=== PATIENT | female | born 2000 | race Two or more races ===

== ENCOUNTER 2024-08-06 14:22 | Emergency (ER) | payer OTHER, MEDICAID, SELFPAY ==
[2024-08-06 14:22] VITALS: BMI 34.2
[2024-08-06] MEDS: predniSONE 20 MG TABLET 60 MG PO (15:07)
[2024-08-06] MEDS: DiphenhydrAMINE 25 MG CAPSULE PO (15:08)
[2024-08-06 15:27] VITALS: BP 113/75; PULSE 72; RESP 16; TEMP 36.9; O2SAT 99
--- NOTE | 2024-08-06 15:30 | EDNOTE_ITS ---
ED Allergic Reaction RME/HPI General Chief complaint: Allergic Reaction Stated complaint: HIVES ALLERGIC REACTION Time Seen by Provider: 08/06/24 14:51 Source: patient Arrival date/time: 08/06/24 14:22 23-year-old female presents to the emergency department with complaints of rash and hives that began approximately 1 hour ago. Denies any shortness of breath no chest pain palpitations or wheezing. Patient reports that 1 week ago she had similar symptoms was seen by her PCP and given 1 shot of steroids diminishing her symptoms. She is unaware of what she can possibly be allergic to. Mode of arrival: ambulatory Related Data Previous Rx's ?Medication ?Instructions ?Recorded diphenhydramine HCl 25 mg capsule 25 mg PO TID PRN allergy symptoms 08/06/24 (Allergy (diphenhydramine)) #20 caps prednisone 20 mg tablet 40 mg (2 x 20 mg) PO QDAY 3 days 08/06/24 #6 tabs Allergies Allergy/AdvReac Type Severity Reaction Status Date / Time Penicillins Allergy Severe STOP Verified 11/06/22 20:25 BREATHING amoxicillin Allergy Verified 11/06/22 20:25 naproxen Allergy Verified 11/06/22 20:25 Review of Systems Review of Systems Systems Reviewed: All systems reviewed, normal except as documented Narrative Review of Systems: Gen: No fever, no chills, no weight loss EYES: No discharge, no visual changes, no pain HEENT: No ear pain, no congestion, no sore throat PULM: No shortness of breath, no cough, no congestion CV: No chest pain, no dyspnea on exertion, no palpitations GI: No nausea, no vomiting, no diarrhea, no pain, no constipation : No frequency, no urgency,? no dysuria Musc/skel: No joint pain, no back pain Skin: +rash? Past Medical History Past Medical History NEUROLOGIC: Negative Neurological Disorders or Seizures CARDIAC: Negative Cardiac Disorders or Congestive Heart Failure RESPIRATORY: Negative Chronic Obstructive Pulmonary Disease (COPD) GASTROINTESTINAL: Negative Gastrointestinal Disorders GENITOURINARY: Negative Genitourinary Disorders or Renal Disease MUSCULOSKELETAL: Negative Musculoskeletal Disorders ENDOCRINE: Negative Endocrine Disorders, Diabetes Mellitus Type 1 or Diabetes Mellitus Type 2 HEMATOLOGIC: Negative Blood Disorders OTHER HISTORY: Negative Blood Transfusions, Blood Transfusion Reaction, Anesthesia Reactions or MRSA Family History FAMILY HISTORY: Positive Family Cancer (grandmother) Social History SMOKING STATUS: Never smoker SUBSTANCE USE: does not use ED Exam Narrative Physical exam: General: Sittiing in Exam table in no acute distress, answering questions appropriately HENT: normocephalic, atraumatic, EOMI, PERRLA, moist mucous membranes Chest: chest wall is nontender Cardiac: regular rate and rhythm, normal S1 and S2, no murmurs, rubs, or gallops, capillary refill ?2 seconds Pulmonary: clear to auscultation bilaterally, no wheezing, crackles, or rhonchi Abdominal: active bowel sounds, soft, nontender, nondistended Neuro: A&OX3, CN II-XII intact, sensation grossly intact bilaterally in UE and LE. Skin: + Mild rash to upper and posterior back with hives. Ext: no lower extremity edema Course Quality Measures none Orders Category Date Time Status DiphenhydrAMINE [Benadryl] Med 08/06/24 14:58 Discontinued 25 mg PO X1 ONE predniSONE Med 08/06/24 14:58 Discontinued 60 mg PO X1 ONE Vital Signs Vital signs: Vital Signs Temperature 98.4 F 08/06/24 15:27 Pulse Rate 72 08/06/24 15:27 Respiratory Rate 16 08/06/24 15:27 Blood Pressure 113/75 08/06/24 15:27 Pulse Oximetry (%) 99 08/06/24 15:27 Oxygen Delivery Method Room Air 08/06/24 15:27 Allergic Reaction MDM Narrative MDM Narrative:: 23-year-old female evaluated the emergency department with evidence of + Cutaneous hives/erythema No evidence of multiorgan involvement Given history and exam, presentation most consistent with allergic reaction. I have low suspicion for toxic shock syndrome, anaphylaxis, asthma exacerbation, or drug toxicity. P.o. medications of prednisone and Benadryl given in ED patient, was observed and symptoms had improved. No hypoxia or airway involvement. Rx: Prednisone 40mg qday x3days, Benadryl 25mg q8hr x3days Discharge home follow-up with PCP in 48 hours. ER precautions given Patient data External records reviewed:: [facility] previous records Clinical information provided by:: patient Social determinants that could affect healthcare access:: none Patient has the following chronic illnesses:: no How is presenting disease/condition affected by chronic disease/condition?: no chronic disease Evaluation data The following diagnostics were reviewed and interpreted by me:: other (specify) Lab and/or radiology exams considered but not ordered:: no Interpretation Summary: n/a Medications / Prescriptions Medications or Prescriptions considered but not ordered:: no Medication administrations:: Medication Administration History Discontinued Medications Diphenhydramine HCl (Diphenhydramine 25 Mg Capsule) 25 mg PO X1 ONE Stop: 08/06/24 14:59 Last Admin: 08/06/24 15:08 Dose: 25 mg Documented By: Prednisone (Prednisone 20 Mg Tablet) 60 mg PO X1 ONE Stop: 08/06/24 14:59 Last Admin: 08/06/24 15:07 Dose: 60 mg Documented By: All medications administered and effective Consultations Consultation(s) initiated? (list below): No Diagnosis Differential Diagnosis allergic reaction: anaphylaxis, allergic reaction, contact dermatitis, adverse reaction to drug and urticaria Most likely diagnosis given after review of the tests above:: Allergic reaction Admission Indicated Admission indicated?: not indicated Admission Request Was there a request for admission?: No Disposition Plan Disposition Plan: Discharge Discharge Attestation Discharge Attestation: The patient and all family members were given an opportunity to ask questions and understood the discharge instructions. Discharge instructions specifically effects, indications for sooner follow up or return to the emergency department, and the expected course of current diagnosis. Patient condition: Stable Discharge Plan Plan Patient Disposition: HOME (Self Care) Patient condition on transfer: Stable Prescriptions/Referrals Prescriptions/Med Rec: New diphenhydramine HCl [Allergy (diphenhydramine)] 25 mg capsule 25 mg PO TID PRN (Reason: allergy symptoms) Qty: 20 0RF prednisone 20 mg tablet 40 mg PO QDAY 3 Days Qty: 6 0RF Problem List Clinical Impression: Allergic reaction Patient/Caregiver Discharge Instructions Discharge Activity: activity as tolerated Education Materials: ED Medicine Reaction: Allergic Additional Instructions: You have been evaluated today in the Emergency Department today for your allergic reaction. You have been given medications including steroids, and benadryl to control your hives. You have been observed in the Emergency Department and it appears that your symptoms will not return.? Please follow up with your primary care physician as needed. Return to the Emergency Department if you experience difficulty breathing or swallowing, recurrent vomiting, rashes, lip/mouth/tongue swelling, persistent fevers or for any other concerning symptoms.? Print Language: Rwandan Stand Alone Forms: [employer] Award Info., Patient Portal Info Letter Attestation MD Attestation The patient was seen by the midlevel practitioner. I, the co-signing physician, was present during the entire ER visit. While I did not physically examine the patient, I was available for consultation as needed.
== END 2024-08-06 16:25 | disposition home or self-care (01) ==
LOC: SERX 16:12
PROVIDERS: Emergency Provider Emergency Medicine; PCP Nurse Practitioner Family
DX: L50.0 Allergic urticaria (principal)
CPT/HCPCS: 99282; J7512; A9270

== ENCOUNTER 2024-10-20 21:51 | Emergency (ER) | payer MEDICAID, SELFPAY ==
[2024-10-20 21:52] VITALS: BMI 36.1
[2024-10-20 22:44] VITALS: BP 129/84; PULSE 84; RESP 18; TEMP 37.1; O2SAT 99
--- NOTE | 2024-10-20 22:49 | XR_ITS ---
Examination: CT brain head without contrast. 2-D sagittal coronal reconstructions Date and time of exam:October 21, 2024 0041 hrs. Indications: Severe headaches with right eye blurred vision today CTDI: vol (mGy):48.9 DLP: (mGycm):998 Technique: Multiple CT axial sections of the brain have been obtained, 5 mm slice thickness. Contrast has not been administered. 2-D sagittal, coronal reconstructions have been obtained Low dose protocols were performed. One or more of the following dose reduction techniques were used; automated exposure control, adjustment of the mA and/or KV according to patient size, use of iterative reconstruction technique. Findings: No significant ventricular enlargement. Intra-axial or extra-axial hemorrhage density is not seen. No mass effect or midline shift Basal cisterns are not remarkable. Fourth ventricle is midline. Cranial vault intact. Impression: Negative for acute hemorrhage, mass effect or midline shift If symptoms persist, consider brain MRI follow-up
--- NOTE | 2024-10-20 22:51 | EDNOTE_ITS ---
ED Headache RME/HPI General Chief Complaint: Headache Stated Complaint: R SIDED HEADACHE, R EYE VISION CHANGES Time Seen by Provider: 10/20/24 22:04 Arrival date/time: 10/20/24 21:51 RME / HPI RME / HPI Narrative: This section includes all my notes and documentations, including HPI, PE, and ED course.? Indio Oden MD HPI: 23 year old female here with a few days of right sided headaches. She reports intermittent sharp and stabbing pain in the right temporal area lasting 30 seconds or so. No fever. Has associated nausea. No other complaints. ROS: All negative except as documented in HPI. Physical Exam: General:? Alert and oriented. Appears uncomfortable. Eyes:? Conjunctivae and lids clear.? PERRL. EOMI. ENT:? No nasal congestion. Pharynx normal. TM normal bilaterally. Neck:? Supple.? Heart:? RRR.? Lungs:? No respiratory distress.? Good air movement.? No rhonchi, wheezing, rales.?? Abdomen:? Soft and nontender.?? Legs:? No clubbing, cyanosis, edema.? Skin:? Warm and dry.?? Neuro:? Alert and oriented X 3.??CN 2-12 grossly normal. No peripheral motor deficits. I reviewed all diagnostic test results. My review of the head CT report is?no acute findings. Urine negative. UA unremarkable. At this point, diagnoses include?Trigeminal Neuralgia. Treatment here included?Zofran ODT 4 mg and Xanax 0.5 mg. Significant improvement noted. Recommended more outpatient care. Based on my best medical judgment, made decision no further evaluation or treatment indicated at this time.? Patient understands and agrees to the discharge instructions customized and printed, see below. Discharge Instructions from Dr. Oden printed for you: 1. Fortunately, there is no life-threatening condition, such as stroke or brain tumor. 2. But you have trigeminal neuralgia, which causes severe shooting pain lasting seconds. 3. Try Xanax and lidocaine patches as needed. 4. See a private doctor on 10/23/2024 for recheck and further care. Ask for help with more care, such as MRI imaging and referral to see neurologist. 5. Seek immediate medical care with worsening or with any concerns. Indio Oden MD Discharge Instructions from Dr. Oden printed for you: 1. Fortunately, there is no life-threatening condition, such as stroke or brain tumor. 2. But you have trigeminal neuralgia, which causes severe shooting pain lasting seconds. 3. Try Xanax and lidocaine patches as needed. 4. See a private doctor on 10/23/2024 for recheck and further care. Ask for help with more care, such as MRI imaging and referral to see neurologist. 5. Seek immediate medical care with worsening or with any concerns. Related Data Previous Rx's ?Medication ?Instructions ?Recorded diphenhydramine HCl 25 mg capsule 25 mg PO TID PRN all ergy symptoms 08/06/24 (Allergy (diphenhydramine)) #20 caps alprazolam 0.5 mg tablet (Xanax) 0.5 mg PO BID PRN anx iety #20 tabs 10/21/24 lidocaine 5 % topical patch 1 patch topical QDAY PRN p ain #30 10/21/24 (Lidoderm) ea Allergies Allergy/AdvReac Type Severity Reaction Status Date / Time Penicillins Allergy Severe STOP Verified 10/20/24 21:54 BREATHING amoxicillin Allergy Verified 10/20/24 21:54 naproxen Allergy Verified 10/20/24 21:54 Course Quality Measures none Orders Category Date Time Status CT head/brain wo con Stat Exams 10/20/24 22:49 Completed HCG Qualitative,Urine Stat Lab 10/20/24 22:51 Completed UA, C/S IF [Urinalysis, C/S if Indicated] Stat Lab 10/20/24 22:51 Completed Urine Culture Stat Lab 10/20/24 22:51 Completed ALPRazoLAM [Xanax] Med 10/20/24 22:49 Discontinued 0.5 mg PO X1 ONE Ondansetron Odt [Zofran Odt] Med 10/20/24 22:49 Discontinued 4 mg PO X1 ONE Vital Signs Vital signs: Vital Signs Temperature 98.7 F 10/20/24 22:44 Pulse Rate 84 10/20/24 22:44 Respiratory Rate 18 10/20/24 22:44 Blood Pressure 129/84 10/20/24 22:44 Pulse Oximetry (%) 99 10/20/24 22:44 Oxygen Delivery Method Room Air 10/20/24 22:44 Headache Patient data External records reviewed:: [facility] previous records Clinical information provided by:: patient Social determinants that could affect healthcare access:: none Patient has the following chronic illnesses:: None How is presenting disease/condition affected by chronic disease/condition?: no chronic disease Evaluation data The following diagnostics were reviewed and interpreted by me:: lab results and radiology exam(s) Lab and/or radiology exams considered but not ordered:: None Interpretation Summary: Trigeminal Neuralgia Medications / Prescriptions Medications or Prescriptions considered but not ordered:: None Medication administrations:: Medication Administration History Discontinued Medications Alprazolam (Alprazolam 0.25 Mg Tablet) 0.5 mg PO X1 ONE Stop: 10/20/24 22:50 Last Admin: 10/20/24 22:59 Dose: 0.5 mg Documented By: KATHIA Ondansetron HCl (Ondansetron Odt 4 Mg Tabrap) 4 mg PO X1 ONE; Protocol Stop: 10/20/24 22:50 Last Admin: 10/20/24 22:59 Dose: 4 mg Documented By: KATHIA Zochely and Xanax Consultations Consultation(s) initiated? (list below): No Diagnosis Differential diagnosis headache: migraine, tension headache, subarachnoid hemorrhage, headache and sinusitis Most likely diagnosis given after review of the tests above:: Trigeminal Neuralgia Admission Indicated Admission indicated?: not indicated Explain why admission is indicated or not indicated:: Admission was not indicated Admission Request Was there a request for admission?: No Disposition Plan Disposition Plan: Discharge Discharge Attestation Discharge Attestation: The patient and all family members were given an opportunity to ask questions and understood the discharge instructions. Discharge instructions specifically effects, indications for sooner follow up or return to the emergency department, and the expected course of current diagnosis. Patient condition: Stable Discharge Plan Plan Patient Disposition: HOME (Self Care) Prescriptions/Referrals Prescriptions/Med Rec: New alprazolam [Xanax] 0.5 mg tablet 0.5 mg PO BID PRN (Reason: anxiety) Qty: 20 0RF lidocaine [Lidoderm] 5 % adhesive patch,medicated 1 patch topical QDAY PRN (Reason: pain) Qty: 30 0RF Rx Instructions: leave on most painful area for up to 12 hrs No Action diphenhydramine HCl [Allergy (diphenhydramine)] 25 mg capsule 25 mg PO TID PRN (Reason: allergy symptoms) Qty: 20 0RF Referrals: Aleshia Sanches LAWYER [Primary Care Provider] - In 1 week Problem List Clinical Impression: Trigeminal neuralgia Patient/Caregiver Discharge Instructions Discharge Activity: activity as tolerated Education Materials: ED Trigeminal Neuralgia Additional Instructions: Discharge Instructions from Dr. Oden printed for you: 1. Fortunately, there is no life-threatening condition, such as stroke or brain tumor. 2. But you have trigeminal neuralgia, which causes severe shooting pain lasting seconds. 3. Try Xanax and lidocaine patches as needed. 4. See a private doctor on 10/23/2024 for recheck and further care. Ask for help with more care, such as MRI imaging and referral to see neurologist. 5. Seek immediate medical care with worsening or with any concerns. Print Language: Upper Sorbian Stand Alone Forms: [employer]man Award Info., Patient Portal Info Letter
[2024-10-20] MEDS: ONDANSETRON ODT 4 MG TABRAP PO (22:59)
[2024-10-20] MEDS: ALPRazoLAM 0.25 MG TABLET 0.5 MG PO (22:59)
[2024-10-20 23:00] LABS: Collection Type, Urine Clean Catch; RBC,Urine 0 /hpf (0-3); WBC,Urine 0 /hpf (0-5)
[2024-10-20 23:12] LABS: Bacteria,Urine 1+; Bilirubin,Urine Negative (Negative); Blood,Urine Negative (Negative); Clarity,Urine Clear (Clear/Hazy); Color,Urine Colorless (Lt Yel-Yel); Glucose, Urine Negative (Negative); Ketones,Urine Negative (Negative); Leukocyte Esterase,Urine Negative (Negative); Nitrite,Urine Negative (Negative); PH,Urine 6.5 (5.0-7.0); Protein,Urine Negative (Neg - Trace); Specific Gravity,Urine 1.009 (1.001-1.035); Squamous Epithelial Cell,Urine 1 /hpf (0-5); Urobilinogen,Urine Negative mg/dL (0.0-1.0)
[2024-10-20 23:14] LABS: Culture Indicated,Urine Yes; HCG Qualitative,Urine Negative
== END 2024-10-21 02:52 | disposition home or self-care (01) ==
PROVIDERS: Emergency Provider Emergency Medicine; PCP Nurse Practitioner Family
DX: G50.0 Trigeminal neuralgia (principal); Z88.6 Allergy status to analgesic agent
CPT/HCPCS: 70450; 81001; 81025; 87086; 99284; Q0162; A9270

== ENCOUNTER 2025-06-10 18:41 | Emergency (ER) | payer MEDICAID, SELFPAY ==
[2025-06-10 19:43] VITALS: BP 128/78; PULSE 92; RESP 20; TEMP 37; O2SAT 100; BMI 32.5
--- NOTE | 2025-06-10 19:45 | XR_ITS ---
Examination: Lumbar spine 2 views Technique: AP lateral lumbar spine 2 views Date and time: June 10, 2025, 2029 hrs. Indications: Onset lower back pain beginning yesterday. Findings: Adequate alignment lumbar vertebral bodies Mild disc narrowing L5-S1 No lumbar fracture No spondylolisthesis Impression: Mild disc narrowing L5-S1
[2025-06-10 20:22] LABS: HCG Qualitative,Urine Negative
--- NOTE | 2025-06-10 21:05 | PD.EDBACK ---
ED Back Injury Pain RME/HPI General Chief Complaint: Back Pain/Injury Stated Complaint: PAIN IN lower back Time Seen by Provider: 06/10/25 19:11 Arrival date/time: 06/10/25 18:41 This is a case of 24-year-old female with history of ankylosing spondylitis and lupus came in in the emergency room due to lower back pain for 2 days patient initially had chest pain and shortness of breath but resolved prior to arrival in the emergency room at the time of exam patient denies any chest pain or shortness of breath patient stated that her concern is her lower back pain radiating to the both lateral aspect of both legs patient denies any numbness weakness tingling sensation or incontinence to urine or stool patient have appointment to see a purchasing engineer for her ankylosing spondylitis Limitations: no limitations Related Data Previous Rx's ?Medication ?Instructions ?Recorded diphenhydramine HCl 25 mg capsule 25 mg PO TID PRN allergy symptoms 08/06/24 (Allergy (diphenhydramine)) #20 caps alprazolam 0.5 mg tablet (Xanax) 0.5 mg PO BID PRN anxiety #20 tabs 10/21/24 lidocaine 5 % topical patch 1 patch topical QDAY PRN pain #30 10/21/24 (Lidoderm) ea baclofen 10 mg tablet 10 mg PO BID PRN muscle spasm #10 06/10/25 tabs hydrocodone 5 mg-acetaminophen 325 1 tab PO Q6H PRN pain #16 tabs 06/10/25 mg tablet lidocaine 5 % topical patch 1 patch topical QDAY PRN pain #15 06/10/25 (Lidoderm) ea prednisone 20 mg tablet See Taper PO QDAY 5 days #5 tabs 06/10/25 Allergies Allergy/AdvReac Type Severity Reaction Status Date / Time Penicillins Allergy Severe STOP Verified 06/10/25 18:46 BREATHING amoxicillin Allergy Verified 06/10/25 18:46 naproxen Allergy Verified 06/10/25 18:46 Review of Systems Review of Systems Systems Reviewed: All systems reviewed, normal except as documented Constitutional Constitutional: Reports system reviewed and no additional complaints, except as documented and Reports as per HPI Cardiovascular Cardiovascular: Reports system reviewed and no additional complaints, except as documented and Reports as per HPI Respiratory Respiratory: Reports system reviewed and no additional complaints, except as documented and Reports as per HPI Gastrointestinal Gastrointestinal: Reports system reviewed and no additional complaints, except as documented and Reports as per HPI Musculoskeletal Musculoskeletal: Reports system reviewed and no additional complaints, except as documented and Reports as per HPI Neurologic Neurologic: Reports system reviewed and no additional complaints, except as documented and Reports as per HPI Past Medical History Past Medical History NEUROLOGIC: Negative Neurological Disorders or Seizures CARDIAC: Negative Cardiac Disorders or Congestive Heart Failure RESPIRATORY: Negative Chronic Obstructive Pulmonary Disease (COPD) GASTROINTESTINAL: Negative Gastrointestinal Disorders GENITOURINARY: Negative Genitourinary Disorders or Renal Disease MUSCULOSKELETAL: Negative Musculoskeletal Disorders ENDOCRINE: Negative Endocrine Disorders, Diabetes Mellitus Type 1 or Diabetes Mellitus Type 2 HEMATOLOGIC: Negative Blood Disorders OTHER HISTORY: Negative Blood Transfusions, Blood Transfusion Reaction, Anesthesia Reactions or MRSA Family History FAMILY HISTORY: Positive Family Cancer (grandmother) Social History SMOKING STATUS: Never smoker SUBSTANCE USE: does not use ED Exam General Limitations: Present no limitations General appearance: Present alert, in no apparent distress and other (Patient is awake alert oriented not in distress nontoxic looking well-hydrated well-nourished) Head Head exam: Present atraumatic, normocephalic and normal inspection Eye Eye exam: Present normal appearance, PERRL and EOMI ENT ENT exam: Present normal exam, normal oropharynx and mucous membranes moist Neck Neck exam: Present normal inspection, full ROM and trachea midline; Absent tenderness, meningismus, lymphadenopathy or thyromegaly Chest Chest inspection: Present normal inspection and symmetric chest wall rise; Absent tenderness Respiratory Respiratory exam: Present normal lung sounds bilaterally; Absent respiratory distress, wheezes, stridor, accessory muscle use or prolonged expiratory phase Cardiovascular Cardiovascular exam: Present regular rate, normal rhythm and normal heart sounds; Absent bradycardia, tachycardia, irregular rhythm, systolic murmur or diastolic murmur Abdominal Exam Abdominal exam: Present soft and normal bowel sounds; Absent distention, tenderness, guarding, rebound, rigidity, diminished bowel sounds, hyperactive bowel sounds, hypoactive bowel sounds or organomegaly Extremities Exam Extremities exam: Present normal inspection and full ROM Back Exam Back exam: Present normal inspection, full ROM, tenderness (Mild tenderness on the L1 L5 no crepitation no deformity no redness no swelling ROM intact pulses were full and equal capillary refill less than 2 seconds sensory is intact no paraspinal no paravertebral tenderness) and other (Sacral exam is normal); Absent CVA tenderness (R), CVA tenderness (L), muscle spasm, paraspinal tenderness, vertebral tenderness, rashes, sciatic notch tenderness (R), sciatic notch tenderness (L), straight leg raise (R) or straight leg raise (L) Neurological Exam Neurological exam: Present alert, oriented X3, CN II-XII intact, normal gait and reflexes normal; Absent motor sensory deficit Psychiatric Psychiatric exam: Present normal affect and normal mood Skin Skin exam: Present warm, dry, intact and normal color Course Quality Measures none Orders Category Date Time Status XR lumbar spine 2-3V Stat Exams 06/10/25 19:45 Taken HCG Qualitative,Urine Stat Lab 06/10/25 20:02 Completed Dexamethasone Inj [Decadron Inj] Med 06/10/25 20:58 Once 10 mg IM X1 ONE HYDROcodone*/APAP 5/325 [Bidwell 5/325] Med 06/10/25 20:58 Once 1 tab PO X1 ONE Vital Signs Vital signs: Vital Signs Temperature 98.6 F 06/10/25 19:43 Pulse Rate 92 06/10/25 19:43 Respiratory Rate 20 06/10/25 19:43 Blood Pressure 128/78 06/10/25 19:43 Pulse Oximetry (%) 100 06/10/25 19:43 Oxygen Delivery Method Room Air 06/10/25 19:43 Oxygen saturation is 100% in room air normal Hello hello hello Back Pain / Injury MDM Narrative MDM Narrative:: This is a case of 24-year-old female with history of ankylosing spondylitis and lupus came in in the emergency room due to lower back pain for 2 days patient initially had chest pain and shortness of breath but resolved prior to arrival in the emergency room at the time of exam patient denies any chest pain or shortness of breath patient stated that her concern is her lower back pain radiating to the both lateral aspect of both legs patient denies any numbness weakness tingling sensation or incontinence to urine or stool patient have appointment to see a purchasing engineer for her ankylosing spondylitis physical examination patient is awake alert oriented not in distress nontoxic looking well-hydrated well-nourished vital signs stable BP stable not tachycardic not tachypneic afebrile and nonhypoxic lungs sound is clear no crackles no rales no retraction no stridor heart normal rate regular rhythm no murmur abdominal exam is benign nonsurgical no guarding no rebound no rigidity no tenderness noted mild to moderate tenderness on the L1 and L5 no crepitation no deformity no tenderness on the sacral area no cellulitis leg raise exam normal no CVA tenderness leg raise exam is normal the rest of the physical examination and neurological exam is normal and unremarkable test is negative x-ray of the lumbar showed no fracture no dislocation but with DDD of the lumbar patient was given Bidwell here in the emergency room with dexamethasone and the pain was improved and resolved patient will follow-up with PCP in 2 days for reevaluation and to be referred to pain management doctor for pain control and neurosurgeon for DDD lumbar 4 possible MRI to rule out herniated disc for any worsening symptoms or any emergent concern return to the emergency room immediately or call 911 no signs and symptoms of cauda equina Patient was discharged with comfortable condition walking with stable gait. Patient verbalized no further complains explained diagnosis and answered patient question. Patient is comfortable with the proposed management plan including the need to follow up with his/her primary care physician and any specialist if applicable Discussed patient for any urgent condition or worsening sx, He/She needed to go to emergency room immediately or call 911. Patient acknowledge the responsibility to follow up as instructed and to monitor her/his symptoms. For any persistence of the symptoms for more than 3-5 days return precaution advised. Discussed the result of the test and was given printed discharge instruction has to Patient data External records reviewed:: [facility] previous records Clinical information provided by:: patient Social determinants that could affect healthcare access:: none Patient has the following chronic illnesses:: None How is presenting disease/condition affected by chronic disease/condition?: no chronic disease Evaluation data The following diagnostics were reviewed and interpreted by me:: lab results and radiology exam(s) Lab and/or radiology exams considered but not ordered:: Reviewed Interpretation Summary: Reviewed Medications / Prescriptions Medications or Prescriptions considered but not ordered:: Given Medication administrations:: Medication Administration History Hydrocodone Bitart/Acetaminophen (Hydrocodone/Apap 5/325 Tablet) 1 tab PO X1 ONE Stop: 06/10/25 20:59 Dexamethasone Sodium Phosphate (Dexamethasone Sod Phos Inj 10 Mg/Ml Vial) 10 mg IM X1 ONE Stop: 06/10/25 20:59 Given Consultations Consultation(s) initiated? (list below): No Diagnosis Differential diagnosis back pain/injury: lumbar radiculopathy, sciatica and thoracic back pain Most likely diagnosis given after review of the tests above:: DDD lumbar back muscle spasm Admission Indicated Admission indicated?: not indicated Explain why admission is indicated or not indicated:: Not indicated Admission Request Was there a request for admission?: No Admission Attestation Admission request attestation: Not indicated Disposition Plan Disposition Plan: Discharge Discharge Attestation Discharge Attestation: The patient and all family members were given an opportunity to ask questions and understood the discharge instructions. Discharge instructions specifically effects, indications for sooner follow up or return to the emergency department, and the expected course of current diagnosis. Patient condition: Stable Discharge Plan Plan Patient Disposition: HOME (Self Care) Patient condition on transfer: Stable Prescriptions/Referrals Prescriptions/Med Rec: New hydrocodone-acetaminophen 5-325 mg tablet 1 tab PO Q6H MDD max 4 tabs per day PRN (Reason: pain) Qty: 16 0RF prednisone 20 mg tablet See Taper PO QDAY 5 Days Qty: 5 0RF Taper: Prednisone Taper 20 mg DAILY for 2 Days and 0 Hour 10 mg DAILY for 2 Days and 0 Hour 5 mg DAILY for 7 Days and 0 Hour baclofen 10 mg tablet 10 mg PO BID PRN (Reason: muscle spasm) Qty: 10 0RF lidocaine [Lidoderm] 5 % adhesive patch,medicated 1 patch topical QDAY PRN (Reason: pain) Qty: 15 0RF Rx Instructions: leave on most painful area for up to 12 hrs No Action alprazolam [Xanax] 0.5 mg tablet 0.5 mg PO BID PRN (Reason: anxiety) Qty: 20 0RF lidocaine [Lidoderm] 5 % adhesive patch,medicated 1 patch topical QDAY PRN (Reason: pain) Qty: 30 0RF Rx Instructions: leave on most painful area for up to 12 hrs diphenhydramine HCl [Allergy (diphenhydramine)] 25 mg capsule 25 mg PO TID PRN (Reason: allergy symptoms) Qty: 20 0RF Referrals: No Primary/Family,Physician [Primary Care Provider] - In 1 week Problem List Clinical Impression: Back muscle spasm, DDD (degenerative disc disease), lumbar Patient/Caregiver Discharge Instructions Education Materials: ED Back Pain (Acute or Chronic), ED Degenerative Disk Disease, ED Muscle Spasm Additional Instructions: Follow-up with your primary care physician in 2 days for reevaluation and to be referred to neurosurgeon for DDD lumbar for possible MRI to rule out herniated disc and pain management doctor for pain control worsening symptoms or any emergent concerns such as numbness weakness tingling sensation incontinence to urine or stool call 911 or go to the nearest emergency room take your medication as directed ice pack and warm compress as needed for pain Print Language: Georgian Stand Alone Forms: Iman Award Info., Patient Portal Info Letter PA/CHANNELER RUNNER Supervising Physician PA/CHANNELER RUNNER Supervising Physician: dr benson
[2025-06-10] MEDS: DEXAMETHASONE SOD PHOS INJ 10 MG/ML VIAL IM (21:16)
[2025-06-10] MEDS: HYDROcodone/APAP 5/325 TABLET 1 TAB PO (21:16)
== END 2025-06-10 21:17 | disposition home or self-care (01) ==
PROVIDERS: Nurse Practitioner Family; Emergency Provider Emergency Medicine
DX: M51.360 Other intervertebral disc degeneration, lumbar region with discogenic back pain only (principal); M62.830 Muscle spasm of back
CPT/HCPCS: 72100; 81025; 96372; 99283; J1100; A9270

== ENCOUNTER → 2025-06-28 | Outpatient (CLI) | payer MEDICAID, SELFPAY ==
--- NOTE | 2025-06-28 14:10 | XR_ITS ---
Examination: Bilateral hands, 4 views. Technique: AP, lateral each hand total 4 views Date and time of exam: June 28, 2025, 1414 hours INDICATIONS: Bilateral hand pain 2 months Findings: Adequate bone density. No fracture or dislocation involving either hand No erosive or other significant arthritic change involving either hand No avascular necrosis IMPRESSION: No erosive or other significant arthritic change involving either hand
--- NOTE | 2025-06-28 14:10 | XR_ITS ---
EXAMINATION: Thoracic spine 3 views TECHNIQUE: AP lateral: Lateral upper dorsal spine 3 views Date and time: June 28, 2025 1414 hours INDICATIONS: Mid back pain for months. FINDINGS: Adequate alignment thoracic vertebral bodies No thoracic fracture or arthritic change Intact pedicles IMPRESSION: No thoracic fracture No arthritic change
--- NOTE | 2025-06-28 14:10 | XR_ITS ---
EXAMINATION: AP pelvis 2 views TECHNIQUE: AP pelvis hips neutral position, AP pelvis hips abduction position Date and time: June 28, 2025, 1426 hours INDICATIONS: Pelvic and hip pain beginning 4 months ago. FINDINGS: No hip fractures or dislocations Bones of the pelvis intact No hip arthritic change IMPRESSION: Negative for osseous abnormality
--- NOTE | 2025-06-28 14:10 | XR_ITS ---
EXAMINATION: Lumbar spine 3 views TECHNIQUE: AP lateral, lateral lower lumbar spine 3 views Date and time: June 28, 2025, 1429 hours INDICATIONS: Low back pain beginning 4 months ago FINDINGS: Adequate alignment lumbar vertebral bodies No lumbar fracture. No spondylosis. No significant lumbar disc narrowing No spondylolisthesis IMPRESSION: No lumbar fracture or arthritic change
== END | disposition home or self-care (01) ==
LOC: COPL 14:03 → CDIM 07-17 08:03
PROVIDERS: PCP Nurse Practitioner Family; Referring Provider Nurse Practitioner Family; Visit Provider Nurse Practitioner Family
DX: M54.50 Low back pain, unspecified (principal); M54.6 Pain in thoracic spine; D89.9 Disorder involving the immune mechanism, unspecified; M53.3 Sacrococcygeal disorders, not elsewhere classified; M79.642 Pain in left hand; M79.641 Pain in right hand; M25.559 Pain in unspecified hip
CPT/HCPCS: 72072; 72100; 72190; 73120